=== PATIENT | male | born 2000 | race Caucasian/White ===

== ENCOUNTER 2018-06-15 23:31 | Emergency (ER) | payer BC ==
[~2018-06-15] VITALS: Ht 177.8 cm; Wt 102.2 kg
[~2018-06-15 23:31] MED LIST: SINGULAIR5 MG OR; TRIAMIN19 OR
[2018-06-16] MEDS ORDERED: PERCOCET 5/325M1 TAB PO (00:04)
[2018-06-16] MEDS ORDERED: AMOXICILLIN500 MG PO (00:04)
[2018-06-16] MEDS ORDERED: IBUPROFEN600 MG PO (00:04)
[2018-06-16 00:15] VITALS: BP 142/78
== END 2018-06-16 00:20 | disposition home or self-care (01) | DRG 153 ==
LOC: ED 23:31
DX: H66.91 Otitis media, unspecified, right ear (principal); K08.89 Other specified disorders of teeth and supporting structures; H92.01 Otalgia, right ear